=== PATIENT | male | born 1980 | race Caucasian/White ===

== ENCOUNTER 2016-05-11 09:26 | Emergency (ER) | payer OTHER ==
[2016-05-11 09:33] VITALS: BP 101/54; PULSE 67; TEMP 98.2; BMI 19.9
[2016-05-11] MEDS ORDERED: KETOROLAC TROMETHAMINE 60 MG/2 ML VIAL IM ONE (11:09)
[2016-05-11] MEDS ORDERED: KETOROLAC TROMETHAMINE 60 MG/2 ML VIAL ONE (11:11)
--- NOTE | 2016-05-11 11:47 | PDOC ---
History of Present Illness - General Chief Complaint: Back Pain Stated Complaint: LOWER BACK PAIN, LEGS PAIN Time Seen by Provider: 05/11/16 11:09 History Source: Patient Exam Limitations: No Limitations - History of Present Illness Initial Comments: 05/11/16 11:52 35 yr male with chronic low back pain states the past 3 days with acute low back pain. no saddle anesthesia no bowel or bladder dysfunction . Pt has chronic low back pain with sciatica to both legs. Pt did not take any meds prior to arrival. Pt denies abd pain. 05/14/16 14:05 Occurred: reports: just prior to arrival Severity: reports: mild, moderate Pain Location: reports: back Loss of Consciousness: no loss of consciousness Associated Symptoms (Fall): denies symptoms Past History - Past Medical History Allergies/Adverse Reactions: Allergies Allergy/AdvReac Type Severity Reaction Status Date / Time No Known Allergies Allergy Verified 12/24/15 08:30 Home Medications: Ambulatory Orders Naproxen [Naprosyn -] 500 mg PO BID PRN #14 tablet 05/11/16 Oxycodone HCl/Acetaminophen [Percocet 5-325 mg Tablet] 1 - 2 tab PO Q4H PRN #10 tablet MDD 6 05/11/16 Anemia: No Asthma: No Cancer: No Cardiac Disorders: No CVA: No COPD: No CHF: No Dementia: No Diabetes: No GI Disorders: No Disorders: No HTN: No Hypercholesterolemia: No Liver Disease: No Seizures: No Thyroid Disease: No - Surgical History Abdominal Surgery: No Appendectomy: No Cardiac Surgery: No Cholecystectomy: No Lung Surgery: No Neurologic Surgery: No Orthopedic Surgery: No - Family Disease History Comment:: 05/11/16 11:56 none relevant - Psycho/Social/Smoking Cessation Hx Anxiety: No Suicidal Ideation: No Smoking History: Current every day smoker Have you smoked in the past 12 months: Yes Number of Cigarettes Smoked Daily: 10 Information on smoking cessation initiated: No 'Breaking Loose' booklet given: 11/10/13 Hx Alcohol Use: No Drug/Substance Use Hx: No Substance Use Type: None Hx Substance Use Treatment: No Trauma Specific PMHX - Complaint Specific PMHX Arthritis: No Back Injury: Yes (pt states years ago ) Neck Injury: No Hx Sacro Iliac Joint Dysfunction: No Review of Systems - Review of Systems Able to Perform ROS?: Yes Is the patient limited Nigerian proficient: No Constitutional: No: Symptoms Reported HEENTM: No: Symptoms Reported Respiratory: No: Symptoms reported Cardiac (ROS): No: Symptoms Reported ABD/GI: No: Symptoms Reported : No: Symptoms Reported Musculoskeletal: Yes: Symptoms Reported, Back Pain Integumentary: No: Symptoms Reported Neurological: No: Symptoms reported *Physical Exam - Vital Signs Last Vital Signs Temp Pulse Resp BP Pulse Ox 98.2 F 67 20 101/54 99 05/11/16 09:30 05/11/16 09:30 05/11/16 09:30 05/11/16 09:30 05/11/16 09:30 - Physical Exam General Appearance: Yes: Nourished, Appropriately Dressed. No: Mild Distress HEENT: positive: EOMI, DONALD, Normal ENT Inspection, TMs Normal, Pharynx Normal Neck: negative: Tender Respiratory/Chest: positive: Lungs Clear, Normal Breath Sounds Cardiovascular: positive: Regular Rhythm, Regular Rate Gastrointestinal/Abdominal: positive: Normal Bowel Sounds, Soft Musculoskeletal: positive: Normal Inspection, Other (SLR positive left side at 30 degrees). negative: CVA Tenderness, CVA Tenderness (R), CVA Tenderness (L), Muscle Spasm, Vertebral Tenderness Extremity: positive: Normal Capillary Refill, Normal Inspection, Normal Range of Motion Integumentary: positive: Normal Color, Dry, Warm Neurologic: positive: student affairs dean II-XII NML intact, Fully Oriented, Alert, Normal Mood/ Affect, Motor Strength 5/5 ED Treatment Course - Medications Given in the ED: ED Medications Discontinued Medications Generic Name Dose Route Start Last Admin Trade Name Freq PRN Reason Stop Dose Admin Ketorolac Tromethamine 60 mg 05/11/16 11:09 05/11/16 11:14 Toradol Injection - IM 05/11/16 11:10 60 mg ONCE ONE Administration Medical Decision Making - Medical Decision Making 05/14/16 14:10 cc: low back pain , acute on chronic neg urine or bowel dysfunction, neg groin numbness pt is able to get self dressed and walk with steady gait, no leg weakness or numbness 05/14/16 14:12 pt states he has muscle relaxants at home. Pt is followed by and for orthopedist. 05/14/16 14:12 *DC/Admit/Observation/Transfer Diagnosis at time of Disposition: Low back pain Qualifiers: Chronicity: chronic Back pain laterality: midline Sciatica presence: with sciatica Sciatica laterality: bilateral sciatica Qualified Code(s): M54.41 - Lumbago with sciatica, right side - Discharge Dispostion Disposition: HOME Condition at time of disposition: Good - Prescriptions Prescriptions: Naproxen [Naprosyn -] 500 mg PO BID PRN #14 tablet PRN Reason: Back Pain Oxycodone HCl/Acetaminophen [Percocet 5-325 mg Tablet] 1 - 2 tab PO Q4H PRN #10 tablet MDD 6 PRN Reason: Severe Pain - Referrals Referrals: William Umanzor MD [Primary Care Provider] - - Patient Instructions Additional Instructions: take the pain medication as prescribed, next dose of naprosyn you can take at 7pm you can take percocet in between for severe pain do not stay in one position, do not lie in bed for long periods of time this can make pain worse follow with your back doctor for follow up
== END 2016-05-11 11:50 | disposition home or self-care (01) ==
LOC: JERFT 09:26
PROC: 3E0233Z Introduction of Anti-inflammatory into Muscle, Percutaneous Approach (ICD-10-PCS; principal; 2016-05-11)
DX: M54.41 Lumbago with sciatica, right side (principal); G89.29 Other chronic pain; F17.210 Nicotine dependence, cigarettes, uncomplicated
CPT/HCPCS: 96372; 99281-25

== ENCOUNTER 2017-06-06 09:11 | Emergency (ER) | payer OTHER ==
[2017-06-06 09:56] VITALS: BP 100/59; PULSE 86; TEMP 98.1; BMI 19.2
[2017-06-06] MEDS ORDERED: diazePAM 5 MG TABLET PO ONE (10:25)
[2017-06-06] MEDS ORDERED: KETOROLAC TROMETHAMINE 60 MG/2 ML VIAL IM ONE (10:25)
--- NOTE | 2017-06-06 10:26 | PDOC ---
History of Present Illness - General Chief Complaint: Back Pain Stated Complaint: BACK PAIN Time Seen by Provider: 06/06/17 10:11 History Source: Patient Exam Limitations: No Limitations - History of Present Illness Initial Comments: 06/06/17 10:53 CHIEF COMPLAINT: [Lower back pain] HISTORY OF PRESENT ILLNESS:[37]-year-old [M ],[ history of low back herniations report yesterday he turned and had pain to lower back. Same as previous with herniations. Is requesting injection for pain. Nonradiating pain, no neurosensory deficits, no bowel or bladder difficulty incontinence or urinary retention, no saddle anesthesia, no footdrop. No history of IVDU or history of cancer. ] REVIEW OF SYSTEMS: GENERAL: Afebrile, denies any weakness RESPIRATORY: No cough, wheezing, or hemoptysis. CARDIAC: No chest pain or shortness of breath MUSCULOSKELETAL: Pain to generalized lower back. No point tenderness. Pain worse on [right than left. ] SKIN : No erythema, no bruising, no deformity. GI/: Denies any abdominal pain, no urinary difficulty, incontinence or urinary retention. RECTAL: Denies any difficulty this A.m. NEUROLOGICAL: Denies any numbness or tingling. No neurosensory deficits. PHYSICAL EXAM: GENERAL: The patient is awake, alert, and fully oriented, in no acute distress. RESPIRATORY: Lungs clear bilaterally, no rhonchi wheezes or crackles CARDIAC: S1-S2 audible, no murmur rub or gallop MUSCULOSKELETAL: Pain to generalized lower back, nonradiating, no tingling or sensory deficit. Less than 2 second cap refill, +4 popliteal and pedal pulses. GI/: Abdomen soft, nontender, nondistended. No rebound tenderness. No masses palpable. MUSCULOSKELETAL: No spinal point tenderness. Normal reflexive and no deficits to sensation or strength. RECTAL: [Deferred patient with no neurological findings] SKIN: Warm, Dry, normal turgor, no erythema, no edema no bruising. 06/06/17 11:56 Past History - Past Medical History Allergies/Adverse Reactions: Allergies Allergy/AdvReac Type Severity Reaction Status Date / Time No Known Allergies Allergy Verified 06/06/17 09:53 Home Medications: Ambulatory Orders Cyclobenzaprine HCl [Flexeril 10 mg] 10 mg PO BID PRN #20 tablet MDD 2 06/06/17 Methylprednisolone [Medrol Dose Luis F] 4 mg PO ASDIR #21 tablet 06/06/17 Anemia: No Asthma: No Cancer: No Cardiac Disorders: No CVA: No COPD: No CHF: No Dementia: No Diabetes: No GI Disorders: No Disorders: No HTN: No Hypercholesterolemia: No Liver Disease: No Seizures: No Thyroid Disease: No - Surgical History Abdominal Surgery: No Appendectomy: No Cardiac Surgery: No Cholecystectomy: No Lung Surgery: No Neurologic Surgery: No Orthopedic Surgery: No - Suicide/Smoking/Psychosocial Hx Smoking History: Current every day smoker Have you smoked in the past 12 months: Yes Number of Cigarettes Smoked Daily: 10 Information on smoking cessation initiated: Yes 'Breaking Loose' booklet given: 06/06/17 Hx Alcohol Use: No Drug/Substance Use Hx: No Substance Use Type: None Hx Substance Use Treatment: No Trauma Specific PMHX - Complaint Specific PMHX Arthritis: No Back Injury: Yes (pt states years ago ) Neck Injury: No Hx Sacro Iliac Joint Dysfunction: No *Physical Exam - Vital Signs Last Vital Signs Temp Pulse Resp BP Pulse Ox 98.1 F 86 18 100/59 100 06/06/17 09:53 06/06/17 09:53 06/06/17 09:53 06/06/17 09:53 06/06/17 09:53 Medical Decision Making - Medical Decision Making 06/06/17 11:58 A/P: Patient with chronic lower back pain reports turning in his back when out history of herniated discs. Pain is same as in the past. Toradol 60 mg IM and Valium given. Patient reports some relief after given medication I will discharge patient home on Medrol Dosepak, Flexeril follow-up with PMD I discussed the physical exam findings, ancillary test results and final diagnoses with the patient. I answered all of the patient's questions. The patient was satisfied with the care received and felt comfortable with the discharge plan and treatment plan. The patient will call to arrange follow-up and will return to the Emergency Department with any new, persistent or worsening symptoms. *DC/Admit/Observation/Transfer Diagnosis at time of Disposition: Low back pain Qualifiers: Chronicity: acute Back pain laterality: bilateral Sciatica presence: without sciatica Qualified Code(s): M54.5 - Low back pain - Discharge Dispostion Disposition: HOME Condition at time of disposition: Stable Admit: No - Prescriptions Prescriptions: Cyclobenzaprine HCl [Flexeril 10 mg] 10 mg PO BID PRN #20 tablet MDD 2 PRN Reason: Pain Methylprednisolone [Medrol Dose Luis F] 4 mg PO ASDIR #21 tablet - Referrals Referrals: William Umanzor MD [Primary Care Provider] - Kyaw Carmichael MD [Staff Physician] - - Patient Instructions Printed Discharge Instructions: DI for Low Back Pain Additional Instructions: 1. Please return to the emergency department with any numbness, tingling, weakness, numbness or tingling to groin or legs, or loss of bowel or bladder function. 2. Use pain medication as ordered. 3. Please is to followup in the office of Dr. Carmichael for evaluation within a week if no improvement. 4. Ice or heat 5. Refrain from lifting anything above 10 pounds, until pain resolved. - Post Discharge Activity
[2017-06-06] MEDS ORDERED: KETOROLAC TROMETHAMINE 60 MG/2 ML VIAL ONE (10:31)
[2017-06-06] MEDS ORDERED: diazePAM 5 MG TABLET ONE (10:32)
== END 2017-06-06 11:06 | disposition home or self-care (01) ==
LOC: JERFT 09:11
PROC: 3E0233Z Introduction of Anti-inflammatory into Muscle, Percutaneous Approach (ICD-10-PCS; principal; 2017-06-06)
DX: M54.5 Low back pain (principal); X50.1XXA Overexertion from prolonged static or awkward postures, initial encounter; Y93.89 Activity, other specified; Y92.89 Other specified places as the place of occurrence of the external cause; Y99.8 Other external cause status
CPT/HCPCS: 99281-25

== ENCOUNTER 2018-01-30 18:53 | Emergency (ER) | payer OTHER ==
--- NOTE | 2018-01-30 19:14 | PDOC ---
Rapid Medical Evaluation Time Seen by Provider: 01/30/18 19:09 Medical Evaluation: Allergies Allergy/AdvReac Type Severity Reaction Status Date / Time No Known Allergies Allergy Verified 06/06/17 09:53 I have performed a brief in-person evaluation of this patient. The patient presents with a chief complaint of: abdominal pain and constipation since kidney surgery yesterday. had a stent place in [facility]. pt has not taken any pain medication. Pertinent physical exam findings: well healing surgical scars on abdomen I have ordered the following: flat and upright abd xray The patient will proceed to the ED for further evaluation. Discharge Disposition - Diagnosis Abdominal pain, Constipation - Referrals - Patient Instructions - Post Discharge Activity
[2018-01-30 19:18] VITALS: BP 111/61; PULSE 86; TEMP 98.6; BMI 19.9
[2018-01-30] MEDS ORDERED: ACETAMINOPHEN 1000 MG/100 ML VIAL (NON FORMULARY) IVPB ONE (21:34)
[2018-01-30] MEDS ORDERED: SODIUM CHLORIDE 1,000 ML IV STA (21:34)
--- NOTE | 2018-01-30 21:59 | PDOC ---
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 Patient reports he is 2 days post-op from R pyeloplasty at [place]. He began to feel pain yesterday, but it acutely worsened today. He states the pain is all over his abdomen. He also endorses constipation since the surgery. Patient took a stool softener but has not had a bowel movement and is not passing flatus either. Pt endorses nausea without vomiting. Patient also reports pain with urination but denies hematuria. The patient denies chest pain, shortness of breath, headache, and dizziness. Denies fever, chills. Denies dysuria, frequency, urgency, and hematuria. Allergies: NKA Past surgical history: None reported. Social history: No reported alcohol, drug, or cigarette use. PCP: Dr. Umanzor <Juan Frank - Last Filed: 01/31/18 02:23> - General Chief Complaint: Constipation Stated Complaint: CONSTIPATION Time Seen by Provider: 01/30/18 19:09 Past History <Aleksandra Forrest - Last Filed: 01/30/18 23:16> - Past Medical History Anemia: No Asthma: No Cancer: No Cardiac Disorders: No CVA: No COPD: No CHF: No Dementia: No Diabetes: No GI Disorders: No Disorders: No HTN: No Hypercholesterolemia: No Kidney Stones: Yes Liver Disease: No Seizures: No Thyroid Disease: No - Surgical History Abdominal Surgery: No Appendectomy: No Cardiac Surgery: No Cholecystectomy: No Lung Surgery: No Neurologic Surgery: No Orthopedic Surgery: No - Suicide/Smoking/Psychosocial Hx Smoking History: Current every day smoker Have you smoked in the past 12 months: Yes Number of Cigarettes Smoked Daily: 10 Information on smoking cessation initiated: No 'Breaking Loose' booklet given: 06/06/17 Hx Alcohol Use: No Drug/Substance Use Hx: No Substance Use Type: None Hx Substance Use Treatment: No <Juan Frank - Last Filed: 01/31/18 02:23> - Past Medical History Allergies/Adverse Reactions: Allergies Allergy/AdvReac Type Severity Reaction Status Date / Time No Known Allergies Allergy Verified 06/06/17 09:53 Home Medications: Ambulatory Orders Cyclobenzaprine HCl [Flexeril 10 mg] 10 mg PO BID PRN #20 tablet MDD 2 06/06/17 Methylprednisolone [Medrol Dose Luis F] 4 mg PO ASDIR #21 tablet 06/06/17 Magnesium Citrate [Citroma -] 195 ml PO ONCE #1 bottle 01/31/18 Sodium Phosphate/Na Biphos [Fleet Adult Rectal Enema] 133 ml RC ONCE #2 enema Review of Systems - Review of Systems Comments:: 01/30/18 21:57 GENERAL/CONSTITUTIONAL: No fever or chills. No weakness. HEAD, EYES, EARS, NOSE AND THROAT: No change in vision. No ear pain or discharge. No sore throat. CARDIOVASCULAR: No chest pain or shortness of breath. RESPIRATORY: No cough, wheezing, or hemoptysis. GASTROINTESTINAL: + nausea, constipation, and abdominal pain, no vomiting GENITOURINARY: + dysuria MUSCULOSKELETAL: No joint or muscle swelling or pain. No neck or back pain. SKIN: No rash NEUROLOGIC: No headache, vertigo, loss of consciousness, or change in strength/ sensation. ENDOCRINE: No increased thirst. No abnormal weight change. HEMATOLOGIC/LYMPHATIC: No anemia, easy bleeding, or history of blood clots. ALLERGIC/IMMUNOLOGIC: No hives or skin allergy. <Juan Frank - Last Filed: 01/31/18 02:23> *Physical Exam - Vital Signs Last Vital Signs Temp Pulse Resp BP Pulse Ox 98.6 F 86 18 111/61 100 01/30/18 19:12 01/30/18 19:12 01/30/18 19:12 01/30/18 19:12 01/30/18 19:12 <Aleksandra Forrest - Last Filed: 01/30/18 23:16> - Vital Signs Last Vital Signs Temp Pulse Resp BP Pulse Ox 98.6 F 86 18 111/61 100 01/30/18 19:12 01/30/18 19:12 01/30/18 19:12 01/30/18 19:12 01/30/18 19:12 - Physical Exam Comments: 01/30/18 21:57 GENERAL: Awake, alert, and fully oriented, in no acute distress. HEAD: No signs of trauma EYES: PERRLA, EOMI, sclera anicteric, conjunctiva clear ENT: Auricles normal inspection, hearing grossly normal, nares patent, oropharynx clear without exudates. Moist mucosa NECK: Nontender, no stepoffs, Normal ROM, supple, no lymphadenopathy, JVD, or masses LUNGS: Breath sounds equal, clear to auscultation bilaterally. No wheezes, and no crackles HEART: Regular rate and rhythm, normal S1 and S2, no murmurs, rubs or gallops ABDOMEN: + surgical incisions with no signs of infection, + diffuse tenderness with guarding, + crepitus on R side of abdomen, + R CVAT EXTREMITIES: Normal range of motion, no edema. No clubbing or cyanosis. No cords, erythema, or tenderness NEUROLOGICAL: Cranial nerves II through XII intact. 5/5 strength and sensation in all extremities, Normal speech, normal gait, normal cerebellar function SKIN: Warm, Dry, normal turgor, no rashes or lesions noted. <Juan Frank - Last Filed: 01/31/18 02:23> ED Treatment Course - LABORATORY CBC & Chemistry Diagram: 01/30/18 22:50 01/30/18 22:50 - Medications Given in the ED: ED Medications Discontinued Medications Generic Name Dose Route Start Last Admin Trade Name Gallito PRN Reason Stop Dose Admin Acetaminophen 1,000 mg 01/30/18 21:34 01/30/18 22:40 Ofirmev Injection - IVPB 01/30/18 21:35 1,000 mg ONCE ONE Administration Sodium Chloride 1,000 mls @ 1,000 mls/hr 01/30/18 21:34 01/30/18 21:45 Normal Saline - IV 01/30/18 22:33 1,000 mls/hr ASDIR STA Administration <Aleksandra Forrest - Last Filed: 01/30/18 23:16> - LABORATORY CBC & Chemistry Diagram: 01/30/18 22:50 01/30/18 22:50 - RADIOLOGY Radiology Studies Ordered: Category Date Time Status ABDOMEN & PELVIS CT WITH CONTR [CT] Stat CT Scan 01/30/18 21:33 Ordered <Juan Frank - Last Filed: 01/31/18 02:23> Medical Decision Making - Medical Decision Making 01/30/18 23:15 [facility]-- Phone [phone] <Aleksandra Forrest - Last Filed: 01/30/18 23:16> - Medical Decision Making 01/30/18 21:58 37 M with abdominal pain and constipation since robot pyeloplasty 2 days ago. Pt afebrile in ED. On exam diffusely tender with crepitus. Will need CT to evaluate for post-op complication. - Labs, cultures - CTAP - IVF, pain control 01/31/18 01:[address] Fong, urologist at [facility], who states that the air is likely normal post-op finding. Will await CT results 01/31/18 02:[address] read from [facility] shows pneumoperitoneum consistent with recent surgery. No abscess or fluid collection. No evidence of SBO or colitis. Renal stent is in place. Pt reassessed - states that he still has discomfort but is improved. Main complaint currently is his constipation. I offered pt an enema in the ED, but he prefers to take it at home. Pt to f/u with urologist tomorrow. Pt is well appearing, with normal vitals. Clinically stable for DC at this time. I discussed the physical exam findings, ancillary test results and final diagnoses with the patient. I answered all of the patient's questions. The patient was satisfied with the care received and felt comfortable with the discharge plan and treatment plan. The patient agrees to follow up with the primary care physician within 24-72 hours. <Juan Frank - Last Filed: 01/31/18 02:23> *DC/Admit/Observation/Transfer <Aleksandra Forrest - Last Filed: 01/30/18 23:16> - Attestations Physician Attestion: 01/31/18 02:23 I, Dr. Juan Frank MD, attest that this document has been prepared under my direction and personally reviewed by me in its entirety. I further attest, that it accurately reflects all work, treatment, procedures and medical decision -making performed by me. <Juan Frank - Last Filed: 01/31/18 02:23> Diagnosis at time of Disposition: Abdominal pain, Constipation - Discharge Dispostion Disposition: HOME - Referrals Referrals: William Umanzor MD [Primary Care Provider] - - Patient Instructions Printed Discharge Instructions: DI for Constipation Additional Instructions: supervisor industrial garment your prescriptions at the pharmacy on your way home. Use the enema as instructed and take the stool softeners every day to treat your constipation. If you develop worsening pain, vomiting, fevers, or any other concerning symptoms, return to the ER immediately. Otherwise, follow up with your surgeon TOMORROW for further evaluation of your pain. - Post Discharge Activity
[2018-01-30] MEDS ORDERED: ACETAMINOPHEN INJECTION 100 ML IVPB ONE (22:40)
[2018-01-30 23:13] LABS: BASO % 0.3 % (0-2.0); EOS % 1.5 % (0-4.5); HEMATOCRIT 42.9 % (35.4-49); HEMOGLOBIN 14.2 GM/dL (11.7-16.9); LYMPH % 10.9 % (8-40); MCH 31.1 pg (25.7-33.7); MCHC 33.2 g/dl (32.0-35.9); MEAN CELL VOLUME 93.5 fl (80-96); MEAN PLT VOLUME 9.9 fl (7.5-11.1); MONO % 7.8 % (3.8-10.2); NEUT % 79.5 % (42.8-82.8); PLATELET COUNT 180 K/MM3 (134-434); RBC 4.58 M/mm3 (4.00-5.60); RDW 13.1 % (11.9-15.9); WHITE BLOOD COUNT 7.1 K/mm3 (4.0-10.0)
[2018-01-30 23:17] LABS: URINE APPEARANCE CLEAR; URINE BILIRUBIN NEGATIVE (<2.0 mg/dL); URINE COLOR LTYELLOW; URINE GLUCOSE (UA) NEGATIVE (NEGATIVE); URINE KETONE NEGATIVE (NEGATIVE); URINE LEUK ESTERASE NEGATIVE (NEGATIVE); URINE NITRITE NEGATIVE (NEGATIVE); URINE PROTEIN NEGATIVE (NEGATIVE); URINE UROBILINOGEN NEGATIVE mg/dL (0.2-1.0)
[2018-01-30 23:28] LABS: EPI CELLS RARE /HPF (FEW); URINE MUCUS RARE
[2018-01-30 23:45] LABS: ALK PHOS 79 U/L (45-117); ANION GAP 5 MMOL/L (8-16); BILIRUBIN,TOTAL 0.4 mg/dL (0.2-1); BLOOD UREA NITROGEN 8 mg/dL (7-18); CALCIUM 9.5 mg/dL (8.5-10.1); CHLORIDE 104 mmol/L (98-107); CO2 30 mmol/L (21-32); CREATININE 0.7 mg/dL (0.55-1.3); GLUCOSE,RANDOM 86 mg/dL (74-106); LIPASE 78 U/L (73-393); SGOT/AST 37 U/L (15-37); SGPT/ALT 53 U/L (13-61); SODIUM 139 mmol/L (136-145); TOT PROT 7.8 g/dl (6.4-8.2)
== END 2018-01-31 02:31 | disposition home or self-care (01) ==
LOC: JER 18:53
PROC: 3E0337Z Introduction of Electrolytic and Water Balance Substance into Peripheral Vein, Percutaneous Approach (ICD-10-PCS; principal; 2018-01-30)
PROC: 3E033NZ Introduction of Analgesics, Hypnotics, Sedatives into Peripheral Vein, Percutaneous Approach (ICD-10-PCS; 2018-01-30)
DX: R10.84 Generalized abdominal pain (principal); K59.00 Constipation, unspecified; Z98.890 Other specified postprocedural states; Z96.0 Presence of urogenital implants
CPT/HCPCS: 36415; 74019-TC-FY; 74177-TC; 80053; 81003; 81015; 83690; 85025; 87040; 87086; 99283-25; J0131; J7030

== ENCOUNTER 2018-06-12 21:24 | Emergency (ER) | payer OTHER ==
--- NOTE | 2018-06-12 21:32 | PDOC ---
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 He notes that he bent down yesterday and her a click click noise in his lower back, ranging from moderate to severe. He reports that the back pain radiates down his lower extremities bilaterally. He reports that lying down exacerbates his pain. He notes that he has been having tingling in his legs bilaterally on and off for the past 9 months. He denies any urinary or bowel incontinence or retention. Denies numbness or tingling in the LE. Patient has an appointment for 06/23/18 for an MRI, ordered by Dr. William Umanzor. Patient was able to ambulate into the ED. He notes that he took a pain medication at 1pm today but does not know the name of the medication. Denies falls or trauma. The patient denies chest pain, shortness of breath, headache and dizziness. Denies fever, chills, nausea, vomiting, diarrhea or constipation. Denies dysuria , frequency, urgency and hematuria. Allergies: NKA Past surgical history: None reported. Social history: No reported alcohol, drug, or cigarette use. PCP: Dr. Umanzor Past History - Past Medical History Allergies/Adverse Reactions: Allergies Allergy/AdvReac Type Severity Reaction Status Date / Time No Known Allergies Allergy Verified 06/12/18 21:31 Home Medications: Ambulatory Orders Cyclobenzaprine HCl [Flexeril 10 mg] 10 mg PO BID PRN #20 tablet MDD 2 06/06/17 Methylprednisolone [Medrol Dose Luis F] 4 mg PO ASDIR #21 tablet 06/06/17 Docusate Sodium [Colace] 100 mg PO DAILY #30 capsule 01/31/18 Magnesium Citrate [Citroma -] 195 ml PO ONCE #1 bottle 01/31/18 Sodium Phosphate/Na Biphos [Fleet Adult Rectal Enema] 133 ml RC ONCE #2 enema Naproxen 500 mg PO BID PRN #14 tablet 06/12/18 Anemia: No Asthma: No Cancer: No Cardiac Disorders: No CVA: No COPD: No CHF: No Dementia: No Diabetes: No GI Disorders: No Disorders: No HTN: No Hypercholesterolemia: No Kidney Stones: Yes Liver Disease: No Seizures: No Thyroid Disease: No - Surgical History Abdominal Surgery: No Appendectomy: No Cardiac Surgery: No Cholecystectomy: No Lung Surgery: No Neurologic Surgery: No Orthopedic Surgery: No - Suicide/Smoking/Psychosocial Hx Smoking History: Current every day smoker Have you smoked in the past 12 months: Yes Number of Cigarettes Smoked Daily: 10 'Breaking Loose' booklet given: 06/06/17 Hx Alcohol Use: No Drug/Substance Use Hx: No Substance Use Type: None Hx Substance Use Treatment: No Review of Systems - Review of Systems Comments:: 06/13/18 01:17 GENERAL/CONSTITUTIONAL: No fever or chills. No weakness. HEAD, EYES, EARS, NOSE AND THROAT: No change in vision. No ear pain or discharge. No sore throat. GASTROINTESTINAL: No nausea, vomiting, diarrhea or constipation. GENITOURINARY: No dysuria, frequency, or change in urination. CARDIOVASCULAR: No chest pain or shortness of breath. RESPIRATORY: No cough, wheezing, or hemoptysis. MUSCULOSKELETAL: No joint or muscle swelling or pain. No neck pain. +back pain SKIN: No rash NEUROLOGIC: No headache, vertigo, loss of consciousness, or change in strength/ sensation. ENDOCRINE: No increased thirst. No abnormal weight change. HEMATOLOGIC/LYMPHATIC: No anemia, easy bleeding, or history of blood clots. ALLERGIC/IMMUNOLOGIC: No hives or skin allergy. *Physical Exam - Physical Exam Comments: 06/13/18 01:20 GENERAL: Awake, alert, and fully oriented, in no acute distress. EYES: PERRLA, EOMI, sclera anicteric, conjunctiva clear ENT: Oropharynx clear without exudates. Moist mucosa NECK: Normal ROM, supple, no lymphadenopathy, JVD, or masses LUNGS: Breath sounds equal, clear to auscultation bilaterally. No wheezes, and no crackles HEART: Regular rate and rhythm, normal S1 and S2, no murmurs, rubs or gallops ABDOMEN: Soft, nontender, normoactive bowel sounds. No guarding, no rebound. No masses EXTREMITIES: Normal range of motion, no edema. No cords, erythema, or tenderness BACK: no midline cervical, thoracic, or lumbar ttp. +R>L paraspinal lumbar ttp. Normal rectal tone. NEUROLOGICAL: Normal speech, cranial nerves intact, negative pronator drift, 5/ 5 strength in all 4 extremities, normal sensation to light touch in all 4 extremities, normal cerebellar exam, normal gait, normal platar, patellar reflexes and tone SKIN: Warm, Dry, normal turgor, no rashes or lesions noted. Medical Decision Making - Medical Decision Making 06/13/18 01:22 38yo M with lumbar disk herniations presents to the ED with low back pain after bending down. Vitals wnl. Exam with paraspinal ttp, no midline bony ttp. Likely muscular strain vs sciatica. No red flags for cauda equina, as pt has 5/5 strength, normal sensation, normal reflexes, and normal rectal tone. Pt given 30mg toradol and 5mg PO valium with improvement in pain. Pt offered longer period of observation, but requests DC as he has to go home as his ride home ( sister) needs to leave for her child. Pt to f/u with Dr. Wynne and Dr. Umanzor. I discussed the physical exam findings, ancillary test results and final diagnoses with the patient. I answered all of the patient's questions. The patient was satisfied with the care received and felt comfortable with the discharge plan and treatment plan. The patient will call their primary care physician within 24 hours to arrange follow-up and will return to the Emergency Department with any new, persistent or worsening symptoms. *DC/Admit/Observation/Transfer Diagnosis at time of Disposition: Low back pain - Discharge Dispostion Disposition: HOME Condition at time of disposition: Good Decision to Admit order: No - Prescriptions Prescriptions: Naproxen 500 mg PO BID PRN #14 tablet PRN Reason: Pain - Referrals Referrals: William Umanzor MD [Primary Care Provider] - - Patient Instructions Printed Discharge Instructions: DI for Low Back Pain Additional Instructions: Follow up with Dr. Wynne within 1 week Take the naproxen twice a day as needed for pain. Do not take motrin, ibuprofen , advil, or any other NSAID if you are taking naproxen. Return to the emergency department if you have any new, worsening, or concerning symptoms - Post Discharge Activity - Attestations Physician Attestion: 06/12/18 23:03 I, Dr. Carol Olivier MD, attest that this document has been prepared under my direction and personally reviewed by me in its entirety. I further attest, that it accurately reflects all work, treatment, procedures and medical decision -making performed by me.
[2018-06-12 21:34] VITALS: BP 94/59; PULSE 72; TEMP 97.3
[2018-06-12] MEDS ORDERED: KETOROLAC TROMETHAMINE 15 MG/ML VIAL IM ONE (21:53)
[2018-06-12] MEDS ORDERED: diazePAM 5 MG TABLET PO ONE (21:53)
[2018-06-12] MEDS ORDERED: diazePAM 5 MG TABLET ONE (22:01)
[2018-06-12] MEDS ORDERED: KETOROLAC TROMETHAMINE 30 MG/1 ML VIAL ONE (22:01)
== END 2018-06-12 23:11 | disposition home or self-care (01) ==
LOC: FER 21:24
PROC: 3E0233Z Introduction of Anti-inflammatory into Muscle, Percutaneous Approach (ICD-10-PCS; principal; 2018-06-12)
DX: M54.5 Low back pain (principal); F17.210 Nicotine dependence, cigarettes, uncomplicated
CPT/HCPCS: 99282-25

== ENCOUNTER 2018-12-11 08:40 | Emergency (ER) | payer OTHER | END 2018-12-11 09:39 | disposition home or self-care (01) | LOC: FER 08:40 ==

== ENCOUNTER 2020-05-27 08:36 | Emergency (ER) | payer OTHER ==
[2020-05-27 08:56] VITALS: BP 105/70; PULSE 72; TEMP 98.6; BMI 19.3
[2020-05-27] MEDS ORDERED: KETOROLAC TROMETHAMINE 30 MG/1 ML VIAL IM ONE (08:56)
[2020-05-27] MEDS ORDERED: KETOROLAC TROMETHAMINE 30 MG/1 ML VIAL ONE (09:00)
== END 2020-05-27 09:15 | disposition home or self-care (01) ==
LOC: FER 08:36
PROC: 3E0233Z Introduction of Anti-inflammatory into Muscle, Percutaneous Approach (ICD-10-PCS; principal; 2020-05-27)
DX: M54.5 Low back pain (principal)
CPT/HCPCS: 99284-25

== ENCOUNTER 2020-10-22 08:33 | Emergency (ER) | payer OTHER ==
[2020-10-22 08:47] VITALS: BP 104/61; PULSE 94; TEMP 98.9; BMI 19.3
[2020-10-22] MEDS ORDERED: KETOROLAC TROMETHAMINE 60 MG/2 ML VIAL IM ONE (09:28)
[2020-10-22] MEDS ORDERED: KETOROLAC TROMETHAMINE 60 MG/2 ML VIAL ONE (09:33)
[2020-10-22 10:36] LABS: PH,URINE 5.5 (5.0-8.0); URINE APPEARANCE CLEAR; URINE BILIRUBIN NEGATIVE (NEGATIVE); URINE COLOR YELLOW; URINE GLUCOSE (UA) NEGATIVE (NEGATIVE); URINE KETONE NEGATIVE (NEGATIVE); URINE LEUK ESTERASE NEGATIVE (NEGATIVE); URINE NITRITE NEGATIVE (NEGATIVE); URINE PROTEIN NEGATIVE (NEGATIVE); URINE UROBILINOGEN 0.2 mg/dL (0.2-1.0)
[2020-10-22 10:38] LABS: BASO % 0.6 % (0-2.0); EOS % 1.2 % (0-4.5); HEMATOCRIT 40.8 % (35.4-49); HEMOGLOBIN 13.7 GM/dL (11.7-16.9); LYMPH % 14.1 % (8-40); MCH 31.7 pg (25.7-33.7); MCHC 33.5 g/dl (32.0-35.9); MEAN CELL VOLUME 94.5 fl (80-96); MEAN PLT VOLUME 9.5 fl (7.5-11.1); MONO % 13.7 % (3.8-10.2); NEUT % 70.4 % (42.8-82.8); PLATELET COUNT 189 10^3/uL (134-434); RBC 4.32 M/mm3 (4.00-5.60); RDW 13.3 % (11.9-15.9); WHITE BLOOD COUNT 8.9 K/mm3 (4.0-10.0)
[2020-10-22 10:45] LABS: CHLORIDE 106 mmol/L (98-107); SODIUM 138 mmol/L (136-145)
[2020-10-22 10:47] LABS: ALBUMIN 4.2 g/dl (3.4-5.0); ANION GAP 3 MMOL/L (8-16); CALCIUM 9.8 mg/dL (8.5-10.1); CO2 29 mmol/L (21-32); GLUCOSE,RANDOM 87 mg/dL (74-106)
[2020-10-22 10:50] LABS: CREATININE 0.7 mg/dL (0.55-1.3); SGOT/AST 14 U/L (15-37); SGPT/ALT 23 U/L (13-61)
[2020-10-22 10:52] LABS: BILIRUBIN,TOTAL 0.3 mg/dL (0.2-1); TOT PROT 7.4 g/dl (6.4-8.2)
[2020-10-22 10:53] LABS: ALK PHOS 72 U/L (45-117)
[2020-10-22 11:37] LABS: ERYTHROCYTE SEDIMENTATION RATE 10 mm/hr (0-10)
== END 2020-10-22 11:46 | disposition home or self-care (01) ==
LOC: JER 08:33 → JERFT 08:33
PROC: 3E0233Z Introduction of Anti-inflammatory into Muscle, Percutaneous Approach (ICD-10-PCS; principal; 2020-10-22)
DX: M79.644 Pain in right finger(s) (principal)
CPT/HCPCS: 36415; 80053; 81003; 85025; 85651; 86140; 86431; 99284-25

== ENCOUNTER 2022-08-23 07:09 | Emergency (ER) | payer OTHER ==
[2022-08-23 07:18] VITALS: BP 163/66; PULSE 64; RESP 18; TEMP 98.3
[2022-08-23] MEDS ORDERED: LIDOCAINE HCL 1%, 10 MG/ML (20ML VIAL) ONE (07:18)
[2022-08-23] MEDS ORDERED: DIPHTH,PERTUSS(ACELL),TET 0.5 ML DISP.SYRIN IM ONE ×2 (07:28→07:57)
== END 2022-08-23 08:13 | disposition home or self-care (01) ==
LOC: FER 07:09
PROC: 3E0T3BZ Introduction of Anesthetic Agent into Peripheral Nerves and Plexi, Percutaneous Approach (ICD-10-PCS; principal; 2022-08-23)
PROC: 3E0234Z Introduction of Serum, Toxoid and Vaccine into Muscle, Percutaneous Approach (ICD-10-PCS; 2022-08-23)
DX: S61.102A Unspecified open wound of left thumb with damage to nail, initial encounter (principal); W45.8XXA Other foreign body or object entering through skin, initial encounter
CPT/HCPCS: 64450; 90471; 90715; 99282-25